=== PATIENT | female | born 1980 | race Caucasian/White ===

== ENCOUNTER → 2016-11-24 | Outpatient (CLI) | payer BC ==
[~2016-11-24] MED LIST: AMOX875T PO; HYDR-5688 PO; PRENTAB26 PO
== END | disposition home or self-care (01) ==
LOC: C.LABSPEC 14:41
PROVIDERS: ATTEND Obstetrics & Gynecology
DX: Z34.83 Encounter for supervision of other normal pregnancy, third trimester (principal)

== ENCOUNTER 2016-12-15 14:33 | Inpatient (IN) | payer BC ==
[~2016-12-15] VITALS: Ht 152.4 cm; Wt 79.4 kg
[~2016-12-15 14:33] MED LIST changes: -AMOX875T PO; -HYDR-5688 PO
[2016-12-15] MEDS ORDERED: AMOX875T PO (20:09)
[2016-12-15 20:11] VITALS: Ht 152.4 cm; Wt 79.4 kg
[2016-12-15] MEDS ORDERED: MISOPROSTOLTAB 50 MCG TAB PO STA (20:14)
[2016-12-15 20:25] LABS: HEMATOCRIT 35.2 % (37-47); MEAN CELL VOLUME 86.7 fL (80-100); MEAN CORPUSCULAR HEMOGLOBIN 29.6 pg (25-34); MEAN CORPUSCULAR HGB CONC 34.1 g/dl (32-36); MEAN PLATELET VOLUME 9.9 fL (7.4-10.4); PLATELET COUNT 289 K/uL (130-400); RED BLOOD COUNT 4.06 M/uL (4.2-5.4); WHITE BLOOD COUNT 10.44 K/uL (4.8-10.8)
[2016-12-16] MEDS ORDERED: DINOPROSTONE 10 MG INSERT PV STA (06:04)
[2016-12-16] MEDS: AMOXICILLIN/CLAVULANATE TAB 875 MG TAB PO SCH ×2 (08:01→17:42)
[2016-12-16] MEDS: LACTATED RINGER'S 1000ML 1,000 ML IV PRN ×2 (14:13→17:03)
[2016-12-16] MEDS ORDERED: OXYTOCIN 30 UNITS/500ML NSS IV PRN (16:00)
[2016-12-16] MEDS ORDERED: LACTATED RINGER'S 1000ML 500 ML IV PRN ×3 (16:00→23:52)
[2016-12-16] MEDS ORDERED: EpHEDrine SULFATE INJ 50 MG/ML AMP ONE (16:21)
[2016-12-16] MEDS ORDERED: FENTANYL 2MCG/ML ROPIV 1.25MG/ML 100ML BAG EPI ONE (16:21)
[2016-12-16] MEDS ORDERED: BUPIVACAINE 0.25% 30 ML VIAL ONE (16:21)
[2016-12-16] MEDS ORDERED: FENTANYL CITRATE INJ 50 MCG/1 ML 2 ML VIAL ONE ×2 (16:22→22:48)
[2016-12-16] MEDS ORDERED: NALOXONE HCL INJ 1 MG in SODIUM CHLORIDE 0.9% 1000ML 1,000 ML IV PRN ×2 (18:32→23:52)
[2016-12-16] MEDS ORDERED: NALOXONE HCL INJ 0.4 MG/1 ML VIAL/CARP IV PRN (18:45)
[2016-12-16] MEDS ORDERED: METOCLOPRAMIDE HCL INJ 20 MG in SODIUM CHLORIDE 0.9% 50ML 50 ML IV PRN (18:45)
[2016-12-16] MEDS ORDERED: PROMETHAZINE HCL INJ 25 MG in SODIUM CHLORIDE 0.9% 50ML 50 ML IV PRN (18:45)
[2016-12-16] MEDS ORDERED: EpHEDrine SULFATE INJ 50 MG/ML AMP IV PRN (18:45)
[2016-12-16] MEDS ORDERED: FENTANYL 2MCG/ML ROPIV 1.25MG/ML 100ML BAG EPI PRN (18:45)
[2016-12-16] MEDS ORDERED: ONDANSETRON INJ 2 MG/ML 2 ML VIAL IV PRN (18:45)
[2016-12-16] MEDS ORDERED: NALBUPHINE HCL INJ 10 MG/ML AMP IV PRN (18:45)
[2016-12-16] MEDS ORDERED: DiphenhydrAMINE HCL 50 MG/ML VIAL IV PRN (18:45)
[2016-12-16] MEDS ORDERED: CITRIC ACID/SODIUM CITRATE 15 ML UDC PO ONE (21:45)
[2016-12-16] MEDS ORDERED: CEFOXITIN IV 2,000 MG in DEXTROSE 5% 50ML 50 ML IV ONE (21:45)
[2016-12-16] MEDS ORDERED: OXYTOCIN INJ 10 UNITS/ML VIAL ONE ×3 (21:52→22:59)
[2016-12-16] MEDS ORDERED: MoRPHine SULFATE PF 1 MG/ML 10 ML AMP/VIAL ONE (21:53)
--- NOTE | 2016-12-16 22:05 | HISTORY & PHYSICAL EXAMINATION ---
DATE OF ADMISSION: 12/16/2016 CHIEF COMPLAINT: Nonreassuring heart rate tracing, suspected macrosomia and history of shoulder dystocia. HISTORY OF PRESENT ILLNESS: The patient is a 36-year-old, 4, para 3. On her last , she had delivered in 2005 a 9 pound boy with moderate shoulder dystocia. Her present has been uneventful. Her due date by first trimester ultrasound was 12/21/2016. She was ultrasounded at 36 weeks for size and this put her due at 12/17/2016. She is presently being admitted for induction of labor and suspected macrosomia at 39 weeks' 2 days. Once she was admitted she was given p.o. Cytotec. She contracted sporadically throughout the night and was given a Cervidil tape. Then, on the tape, she went into better labor. When I examined, her membranes ruptured surgically. Following this, she received epidural anesthesia for pain control and then went to IV Pitocin. Eventually she started to develop type 2 decelerations. We had to keep turning back to Pitocin. Eventually, we had to turn it off and she ended up with an arrest of labor at -2 station, 7 cm, 90-100% effaced and at that time even without the Pitocin she was getting recurrent, mild type 2 decelerations. She was diagnosed as having cephalopelvic disproportion secondary to suspected macrosomia and a nonreassuring heart rate tracing. PAST MEDICAL HISTORY: Three children, in good health. ALLERGIES: No known drug allergies. PAST SURGICAL HISTORY: Had her gallbladder removed. SOCIAL HISTORY: No smoking. No excessive alcohol intake. Works at home. FAMILY HISTORY: Mom is 65, has MS. Dad is 68, in good health. Two brothers and two sisters; in good health. REVIEW OF SYSTEMS: HEAD: No symptoms of frequent or severe headaches. EYES: No symptoms of blurred vision or double vision. EARS: No symptoms of frequent ear infection or difficulty hearing. NOSE: No symptoms of frequent nosebleeds or difficulty breathing through her nose. THROAT: No symptoms of frequent or severe sore throat, difficulty swallowing. RESPIRATORY: No history of asthma, chest pain or shortness of breath. PHYSICAL EXAMINATION: GENERAL: Well developed and well-nourished 36-year-old white female, alert, oriented x3, cooperative and in intermittent periods of distress due to contractions. HEART: Had regular rhythm. S1 and S2 were normal. BREASTS: Normal. ABDOMEN: Soft and nontender. Estimated weight was over 8 pounds. PELVIC: Large amount of molding -2 station, vertex cervix 100% effaced, 7 cm dilated. MUSCULOSKELETAL: Revealed no calf tenderness. IMPRESSION OF THIS CASE: Status post cholecystectomy, history of shoulder dystocia and nonreassuring heart rate tracing and suspected recurrent macrosomia. [facility]
[2016-12-16 22:20] LABS: HEMATOCRIT 36.4 % (37-47); MEAN CELL VOLUME 87.3 fL (80-100); MEAN CORPUSCULAR HEMOGLOBIN 29.7 pg (25-34); MEAN CORPUSCULAR HGB CONC 34.1 g/dl (32-36); MEAN PLATELET VOLUME 10.1 fL (7.4-10.4); PLATELET COUNT 281 K/uL (130-400); RED BLOOD COUNT 4.17 M/uL (4.2-5.4); WHITE BLOOD COUNT 15.74 K/uL (4.8-10.8)
[2016-12-16 22:45] LABS: BASO % 0.1 %; BASO ABS # 0.02 K/uL (0-0.2); COMPLETE YES; EOS % 0.1 %; IG% 0.3 %; LYMPH % 5.5 %; LYMPH ABS # 0.86 K/uL (1.2-3.4); MONO % 5.1 %; NEUT % 88.9 %
[2016-12-16] MEDS ORDERED: ONDANSETRON INJ 2 MG/ML 2 ML VIAL ONE (22:59)
[2016-12-16] MEDS ORDERED: MIDAZOLAM HCL 1 MG/ML 2ML VIAL ONE (23:08)
[2016-12-16] MEDS ORDERED: NALOXONE HCL INJ 0.08 MG in SYRINGE 1.8 ML IV PRN (23:52)
[2016-12-16] MEDS ORDERED: SODIUM CHLORIDE 0.9% 1000ML 1,000 ML IV PRN (23:52)
--- NOTE | 2016-12-16 23:54 | Anesthesia Procedure Note ---
Anesthesia Epidural Removal Nt Date & Time Dec 16, 2016 at 23:54 Vital Signs Pain Intensity: 0.0 Notes Mental Status: alert / awake / arousable, participated in evaluation Nausea / Vomiting: adequately controlled Pain: adequately controlled Airway Patency, RR, SpO2: stable & adequate BP & HR: stable & adequate Hydration State: stable & adequate Neuraxial Anesthesia: was administered Anesthetic Complications: no major complications apparent, pt satisfied with anesthetic care Epidural: removed without complications, with tip intact
[2016-12-17] VITALS (16 sets, daily range): BP systolic 99–110; BP diastolic 63–71; PULSE 83–97; TEMP 36.8; O2SAT 96–98
[2016-12-17] MEDS ORDERED: MAGNESIUM HYDROXIDE SUSP 30 ML UDC PO PRN
[2016-12-17] MEDS ORDERED: BENZOCAINE 20% AER SPR 82.5 GM CAN EXT PRN
[2016-12-17] MEDS ORDERED: SENNA 8.6 MG TAB PO PRN
[2016-12-17] MEDS ORDERED: NALOXONE HCL 0.4 MG/1 ML VIAL/CARP IV PRN
[2016-12-17] MEDS ORDERED: EpHEDrine SULFATE INJ 50 MG/ML AMP IV PRN
[2016-12-17] MEDS ORDERED: MoRPHine SULFATE PF 1 MG/ML 10 ML AMP/VIAL EPI PRN
[2016-12-17] MEDS ORDERED: LANOLIN OINT EXT PRN ×2
[2016-12-17] MEDS ORDERED: DIPHTHERIA/TETANUS/PERTUSSIS 0.5 ML SYR/VIAL IM. ONE
[2016-12-17] MEDS ORDERED: NO NARCOTICS OR SEDATIVES SCH
[2016-12-17] MEDS ORDERED: NALBUPHINE HCL INJ 10 MG/ML AMP IV PRN
[2016-12-17] MEDS ORDERED: MoRPHine SULFATE 2 MG/ML CARP IV PRN
[2016-12-17] MEDS ORDERED: KETOROLAC TROMETHAMINE 30 MG/ML VIAL IV. PRN
[2016-12-17] MEDS ORDERED: HYDROCORTISONE ACETATE 25 MG SUPP PR PRN
[2016-12-17] MEDS ORDERED: SUPERCREAM 0.870 % 15GM JAR EXT PRN
[2016-12-17] MEDS: OXYTOCIN INJ 20 UNITS in LACTATED RINGER'S 1000ML 1,000 ML IV SCH ×2 (00:17→08:56)
--- NOTE | 2016-12-17 00:38 | OPERATIVE REPORT ---
DATE OF OPERATION: 12/16/2016 PROCEDURE: Primary low segment section. INDICATIONS FOR SURGERY: Arrest of labor, nonreassuring heart rate pattern, history of shoulder dystocia. PREOPERATIVE DIAGNOSES: Nonreassuring heart rate pattern, history of shoulder dystocia, arrest of labor. POSTOPERATIVE DIAGNOSES: Same. Delivered live female infant. SURGEON: Dr. Chavarria. FAMILY PROGRAM SPECIALIST: Dr. Karl Card. ESTIMATED BLOOD LOSS: 800 mL ANESTHESIA: Epidural. OPERATIVE FINDINGS AND PROCEDURE: The patient was brought to the OR table, correctly identified by armband and conversation. Abreu catheter had been inserted into the bladder. Compression stockings applied. She was placed on the operating room table. Lower abdomen and upper thigh was painted with an alcohol-based sterilizing solution, draped in the usual sterile fashion. Pfannenstiel incision was made, carried down to the anterior fascia by sharp dissection. Hemostasis was secured by electrocauterization. Fascia was incised transversely, from underlying muscle by blunt and sharp dissection. Recti muscles were in the midline, exposing the peritoneum which was carefully raised and entered. Incision was made above the vesicouterine fold. The myometrium was entered partially with a knife and then bluntly with the scissors. Incision was extended laterally with 2 hands. I placed a hand into the uterine cavity. The infant was direct OP, rotated to OA, and then I delivered the head. After delivery of the head, there was a tight nuchal cord which was reduced and then the shoulders of the infant were delivered without difficulty. Cord was clamped and cut, and the infant was attended by the high speed operator, Dr. Kim who was present and scrubbed at the time of delivery. Following this, placenta was removed manually. Uterus was brought out through the incision. There was a tear/uterine defect on the patient's right side that went down into the upper cervix. We identified the extent of the tear and then repaired it with a continuous interlocking suture of chromic gut. Following this, I did a second layer of heavy duty Vicryl to approximate the fascial layer and then did several interrupted [id number] sutures on the patient's right side to complete the hemostatic process. I checked posteriorly to make sure none of the sutures came through the posterior broad ligament, and when I was satisfied that hemostasis was good, I used some Avitene on the edges, then I removed an abdominal pack which we had placed to retract the intestines and then I did a mattress suture of the peritoneum, interrupted [id number] suture of muscle, continuous interlocking suture of Vicryl on each side and tied in the midline. Subcu was approximated with a continuous plain. Skin edges were approximated with staple clips. I attest to the content of the Intraoperative Record and any orders documented therein. Any exceptio ns are noted below.
[2016-12-17] MEDS ORDERED: OXYTOCIN INJ 10 UNITS/ML VIAL ONE (01:12)
[2016-12-17 06:48] LABS: HEMATOCRIT 29.4 % (37-47); MEAN CELL VOLUME 88.8 fL (80-100); MEAN CORPUSCULAR HEMOGLOBIN 29.9 pg (25-34); MEAN CORPUSCULAR HGB CONC 33.7 g/dl (32-36); MEAN PLATELET VOLUME 10.1 fL (7.4-10.4); PLATELET COUNT 244 K/uL (130-400); RED BLOOD COUNT 3.31 M/uL (4.2-5.4); WHITE BLOOD COUNT 16.32 K/uL (4.8-10.8)
[2016-12-17 07:16] LABS: BASO % 0.1 %; BASO ABS # 0.01 K/uL (0-0.2); COMPLETE YES; EOS % 0.1 %; IG% 0.4 %; LYMPH % 7.6 %; LYMPH ABS # 1.24 K/uL (1.2-3.4); MONO % 6.3 %; NEUT % 85.5 %
[2016-12-17] MEDS: PRENATAL VITAMIN TAB PO SCH (07:57)
[2016-12-17] MEDS: SIMETHICONE 80 MG CHEW PO SCH ×4 (07:57→20:01)
[2016-12-17] MEDS: DOCUSATE SODIUM 100 MG CAP PO SCH ×2 (07:57→20:01)
[2016-12-17] MEDS: FERROUS SULFATE 325 MG TAB PO SCH (07:58)
--- NOTE | 2016-12-17 12:12 | Progress Note ---
Subjective Dec 17, 2016. Subjective conversation w/ patient Ambulation: limited ambulation Voiding: bartlett catheter in place Passing Gas: No Diet Tolerance: Clear Liquids Lochia: Small Feeding Type: Breast Feeding Review of Systems Constitutional: + fever Objective Vital Signs Date Time Temp Pulse Resp B/P Pulse Ox O2 Delivery O2 Flow Rate FiO2 12/17/16 11:30 36.8 83 16 99/64 96 Room Air 12/17/16 11:30 16 96 12/17/16 10:30 16 96 12/17/16 09:30 18 96 12/17/16 08:30 16 97 12/17/16 07:30 36.8 96 16 101/64 96 Room Air 12/17/16 07:30 96 Room Air 12/17/16 07:30 16 96 12/17/16 06:30 18 97 12/17/16 05:30 18 97 12/17/16 04:30 18 96 12/17/16 03:50 36.8 92 18 102/63 97 Room Air 12/17/16 03:30 20 96 12/17/16 02:50 36.8 92 20 101/63 96 Room Air 12/17/16 02:30 20 97 12/17/16 02:30 96 Room Air 12/17/16 02:30 96 Room Air Physical Exam General Appearance: WELL-APPEARING Respiratory/Chest: lungs clear Abdomen: non tender, + abnormal bowel sounds Fundus: Firm, Non-Tender Incision Description: Clean, Dry & Intact Extremities: no pedal edema, no calf tenderness Laboratory Results Last 24 Hours Test 12/16/16 22:02 12/17/16 06:11 White Blood Count 15.74 K/uL 16.32 K/uL Red Blood Count 4.17 M/uL 3.31 M/uL Hemoglobin 12.4 g/dL 9.9 g/dL Hematocrit 36.4 % 29.4 % Mean Corpuscular Volume 87.3 fL 88.8 fL Mean Corpuscular Hemoglobin 29.7 pg 29.9 pg Mean Corpuscular Hemoglobin Concent 34.1 g/dl 33.7 g/dl Platelet Count 281 K/uL 244 K/uL Mean Platelet Volume 10.1 fL 10.1 fL Neutrophils (%) (Auto) 88.9 % 85.5 % Lymphocytes (%) (Auto) 5.5 % 7.6 % Monocytes (%) (Auto) 5.1 % 6.3 % Eosinophils (%) (Auto) 0.1 % 0.1 % Basophils (%) (Auto) 0.1 % 0.1 % Neutrophils # (Auto) 14.01 K/uL 13.97 K/uL Lymphocytes # (Auto) 0.86 K/uL 1.24 K/uL Monocytes # (Auto) 0.80 K/uL 1.03 K/uL Eosinophils # (Auto) 0.01 K/uL 0.01 K/uL Basophils # (Auto) 0.02 K/uL 0.01 K/uL RDW Standard Deviation 45.3 fL 47.1 fL RDW Coefficient of Variation 14.3 % 14.4 % Immature Granulocyte % (Auto) 0.3 % 0.4 % Immature Granulocyte # (Auto) 0.04 K/uL 0.06 K/uL Red Blood Cell Morphology Unremarkable Assessment and Plan Post-Op Day#: 1
[2016-12-17] MEDS ORDERED: ZOLPIDEM TARTRATE 5 MG TAB PO PRN (14:00)
[2016-12-17] MEDS ORDERED: MEPERIDINE HCL 50 MG/ML CARP IV PRN (14:00)
[2016-12-17] MEDS ORDERED: MEPERIDINE HCL 75 MG/ML CARP IV PRN (14:00)
[2016-12-17] MEDS ORDERED: ONDANSETRON INJ 2 MG/ML 2 ML VIAL IV PRN ×2 (14:00)
[2016-12-17] MEDS ORDERED: DC INTRASPINAL MORPHINE SCH (14:00)
[2016-12-17] MEDS ORDERED: DiphenhydrAMINE HCL 50 MG/ML VIAL IV PRN ×2 (14:00)
[2016-12-17] MEDS ORDERED: OXYCODONE/ACETAMINOPHEN 5-325 TAB PO PRN (14:00)
[2016-12-17] MEDS: KETOROLAC TROMETHAMINE 30 MG/ML VIAL IV. PRN ×2 (14:20→20:40)
--- NOTE | 2016-12-17 14:49 | ORTHOPEDIC CONSULTATION REPORT ---
DATE OF CONSULTATION: 12/17/2016 CHIEF COMPLAINT: Right ring finger swelling. HISTORY OF PRESENT ILLNESS: Iris is a 36-year-old female patient who is currently admitted to 4th floor nursery unit. The patient underwent a on the evening of 12/16/2016. Our services were requested to evaluate patient for a swelling on the ulnar aspect of her right middle finger that has been present for 3 weeks. Iris denies prior 3 weeks ever having any issue with her right hand or fingers. She states that 3 weeks ago she noticed a small blood blister which she felt was a "blood blister" on the ulnar aspect of her right ring finger. Her used alcohol on the skin and a small needle to pop what was thought to be a blood blister and states that there was a significant amount of high pressured bleeding that was pulsating which they felt was odd for a small finding. did state that this area has engorged with blood rather notably and has not improved with conservative measures and observation. She denies of being painful. She was placed on Augmentin by Dr. Chavarria and they do report some improvement with the overall look of this finding, but nonetheless has not resolved. Denies any draining, any swelling or erythema. Again, no numbness or tingling. PAST MEDICAL HISTORY: Negative for notable pathology such as hypertension, hyperlipidemia, diabetes or thyroid issues. This is her 4th . PAST SURGICAL HISTORY: Cholecystectomy. FAMILY HISTORY: Noncontributory. SOCIAL HISTORY: The patient denies any alcohol, tobacco or illegal drug use. 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 HOME MEDICATIONS: Multivitamin. ALLERGIES: No known drug allergies. REVIEW OF SYSTEMS: The patient denies headache, chest pain, shortness of breath, fevers, chills or night sweats. PHYSICAL EXAMINATION: GENERAL: The patient is alert and oriented x3 female. She is resting comfortably in bed. She is accompanied by her and a fellow family member along with her daughter. SKIN: On exam of the patient's right ring finger, there is a .5 x .5 cm lesion on the ulnar aspect of the middle finger at the height of the DIP joint and it appears to be full of blood. It does not appear to be infectious in nature. There is no swelling, erythema or purulent. No current drainage. There is a Band-Aid and Coban placed over the lesion. No deformity. Otherwise, good alignment of the finger. NEUROVASCULAR: Capillary refill is under 2 seconds. On the right ring finger, distal pulses are +2. Has good sensation to light touch. She has active motor function. Direct pressure over the area of swelling does not cause the mass to carrie. It is nontender. MUSCULOSKELETAL: Exam of the right upper extremity, full range of motion of the fingers DIP, PIP and MCP joints of the right hand. Wrist has full range of motion. Again, no significant tenderness on palpating about the DIP joints or remaining aspect of the finger. It is not hard in nature when palpating the area of swelling. It is fluctuant and again appears to be full of blood. ASSESSMENT: Right ring finger swelling. PLAN: The patient educated regarding today's findings. Differential diagnosis was provided to Iris. I do not at this time see any type of urgent and/or emergent issue. I do not feel this is infectious in nature. I personally feel this appears to be related to a hemangioma. I would like to discuss the patient's findings further with Dr. Altmna. There may be a chance that obtaining a plain film radiograph of the patient's right ring finger would be beneficial to rule out any other type of pathology. At this point, we will continue to monitor Iris's status and make sure that her signs and symptoms do not worsen. Again, the patient does not complain of pain or any other acute or concerning issue other than the esthetic nature of this. The patient had no other questions or concerns. She is satisfied with today's care. Thank you for this consultation. Any other questions, please notify [facility] at [phone]. MTDD
--- NOTE | 2016-12-17 16:49 | DIAGNOSTIC IMAGING REPORT ---
RIGHT HAND MIN 3 VIEWS ROUTINE CLINICAL HISTORY: Fourth finger mass COMPARISON: None. DISCUSSION: No acute fractures are visualized. There are no dislocations. There are no erosive or destructive changes. There is a suspected soft tissue lesion with an overlying skin deformity involving the fourth finger at the ulna are aspect of the distal to phalangeal joint. IMPRESSION: Nonspecific soft tissue lesion involving the ulnar aspect of the fourth finger at the level of the distal interphalangeal joint. No underlying bony abnormalities Electronically signed by: Luis Lee M.D. 12/17/2016 4:48 PM Dictated Date/Time: 12/17/2016 4:46 PM
[2016-12-17] MEDS ORDERED: SILVER NITR/POTASSIUM NITRATE 10 APPLICATOR PACK ONE (19:28)
--- NOTE | 2016-12-17 20:40 | ORTHOPEDIC CONSULTATION ---
DATE OF CONSULTATION: 12/17/2016 The patient is from a , 36 years old. She is seen in conjunction with Renzo Sterling. For further details, refer to his dictation. He and I saw and evaluated together and agree with plan. She may have traumatized the finger, but it is not clear. Perhaps may be 3 weeks ago, spontaneous onset of what she describes as a blood blister, they attempted to pop it with a needle and it has subsequently gotten larger. It has been oozing and at times it has bled. She has no prior history of skin changes or ulceration to this area. PAST MEDICAL HISTORY: Gallbladder, . She is otherwise healthy, does not take any chronic medications and has no allergies. The right ring finger shows a raised 3-4 mm lesion about 4 mm in diameter, overlying the DIP joint, ulnar aspect. She has full movement. It is nontender. There is no swelling. Her neurovascular function is normal, flexor and extensor tendon function intact. The lesion is raised, not pedunculated. Hand radiograph obtained and reviewed, demonstrates soft tissue swelling in the ring finger ulnar aspect. There is no underlying bone change or damage. There is no evidence of arthritis or fracture. The report is noted. IMPRESSION: Right hand ring finger lesion. PLAN: The lesion is likely a pyogenic granuloma which is an exuberant healing response, usually to trauma. There is nothing that really needs to be done acutely. Keep it covered. I did apply some silver nitrate with her permission to initiate the cauterization process. We may attempt to do this repetitively or consider surgical excisional biopsy. She is to follow up with me once she is discharged as an outpatient, in my office number [phone], at her convenience within the next week or two. In the meantime, I would keep it covered with a Band-Aid or bandage and if there are any problems or questions, please let me know.
[2016-12-17] MEDS ORDERED: BISACODYL 5 MG TABEC PO ONE (22:00)
[2016-12-18 00:01] VITALS: BP 96/63; PULSE 89; TEMP 36.7; O2SAT 98
[2016-12-18] MEDS: KETOROLAC TROMETHAMINE 30 MG/ML VIAL IV. PRN (03:23)
[2016-12-18 07:35] VITALS: BP 101/67; PULSE 84; TEMP 36.9; O2SAT 97
[2016-12-18] MEDS: PRENATAL VITAMIN TAB PO SCH (08:11)
[2016-12-18] MEDS: SIMETHICONE 80 MG CHEW PO SCH ×4 (08:11→21:08)
[2016-12-18] MEDS: FERROUS SULFATE 325 MG TAB PO SCH (08:11)
[2016-12-18 08:15] VITALS: O2SAT 97
[2016-12-18] MEDS: DOCUSATE SODIUM 100 MG CAP PO SCH ×2 (09:17→21:08)
[2016-12-18] MEDS: OXYCODONE/ACETAMINOPHEN 5-325 TAB PO PRN ×3 (09:19→21:09)
--- NOTE | 2016-12-18 12:29 | Progress Note ---
Subjective Dec 18, 2016. Subjective conversation w/ patient Ambulation: ambulating normally Voiding: no voiding problems, bartlett catheter in place Passing Gas: Yes Diet Tolerance: Regular Diet Lochia: Small Feeding Type: Breast Feeding Review of Systems Constitutional: + fever Objective Vital Signs Date Time Temp Pulse Resp B/P Pulse Ox O2 Delivery O2 Flow Rate FiO2 12/18/16 08:15 97 Room Air 12/18/16 07:35 36.9 84 18 101/67 97 Room Air 12/18/16 00:01 36.7 89 20 96/63 98 Room Air 12/18/16 00:01 98 Room Air 12/18/16 00:01 20 98 12/17/16 20:00 36.8 85 20 110/71 97 Room Air 12/17/16 15:00 36.8 97 16 103/64 98 Room Air 12/17/16 15:00 98 Room Air 12/17/16 13:30 18 97 12/17/16 12:30 18 96 Physical Exam General Appearance: WELL-APPEARING Abdomen: normal bowel sounds, non tender Fundus: Firm, Non-Tender Incision Description: Clean, Dry & Intact Extremities: no pedal edema, no calf tenderness Assessment and Plan Post-Op Day#: 2 Continue Routine Care: bandage removed
[2016-12-18] MEDS: IBUPROFEN 600 MG TAB PO PRN ×2 (13:37→21:08)
[2016-12-18 16:19] VITALS: BP 94/63; PULSE 94; TEMP 36.6
[2016-12-18 23:35] VITALS: BP 99/65; PULSE 96; TEMP 36.6
[2016-12-19] MEDS ORDERED: BISACODYL 10 MG SUPP PR PRN
[2016-12-19] MEDS: IBUPROFEN 600 MG TAB PO PRN ×2 (06:18→12:02)
[2016-12-19] MEDS: OXYCODONE/ACETAMINOPHEN 5-325 TAB PO PRN ×2 (06:18→12:03)
[2016-12-19 07:56] VITALS: BP 112/75; PULSE 98; TEMP 36.8
[2016-12-19] MEDS: DOCUSATE SODIUM 100 MG CAP PO SCH (08:34)
[2016-12-19] MEDS: SIMETHICONE 80 MG CHEW PO SCH ×2 (08:34→12:04)
--- NOTE | 2016-12-19 10:13 | Progress Note ---
Subjective Dec 19, 2016. Subjective conversation w/ patient Ambulation: ambulating normally Voiding: no voiding problems, bartlett catheter in place Passing Gas: Yes Diet Tolerance: Regular Diet Lochia: Small Feeding Type: Breast Feeding Review of Systems Constitutional: + fever Objective Vital Signs Date Time Temp Pulse Resp B/P Pulse Ox O2 Delivery O2 Flow Rate FiO2 12/19/16 07:56 36.8 98 20 112/75 Room Air 12/19/16 07:30 Room Air 12/18/16 23:35 36.6 96 18 99/65 Room Air 12/18/16 23:35 Room Air 12/18/16 16:30 Room Air 12/18/16 16:19 36.6 94 18 94/63 Room Air Physical Exam General Appearance: WELL-APPEARING Respiratory/Chest: lungs clear Abdomen: normal bowel sounds, non tender Fundus: Firm, Non-Tender Incision Description: Clean, Dry & Intact Extremities: no pedal edema, no calf tenderness Assessment and Plan Post-Op Day#: 3
--- NOTE | 2016-12-19 10:16 | Discharge Instructions ---
Discharge Instructions Date of Service Dec 19, 2016. Admission Reason for Admission: IUP Discharge Discharge Diagnosis / Problem: tight nuchal cord distress Discharge Goals Goal(s): Routine recovery after Activity Recommendations Activity Limitations: as noted below ACTIVITY RECOMMENDATIONS: * Gradual return to full activity over the next 2-3 weeks. * No lifting - nothing heavier than baby over the next 2-3 weeks. * Do not engage in vigorous exercise, sexual activity or sports for 6 weeks. * Do not drive or operate any motorized equipment for 14 days. * You may shower/bathe daily. DIET: Resume Previous Diet If Breast-feeding: * Increase caloric intake by 500 calories, eat 3 well balanced meals, 2 high protein snacks a day and drink 6-8 8oz. glasses of fluid per day. BREAST CARE: If you are not breast feeding: * Wear a supportive bra 24 hours a day for one to two weeks. * Avoid stimulating your breasts and nipples as much as possible during the first few weeks after delivery. * When taking a shower, have the warm water hit your back, not breasts. * When your breasts feel full, apply ice packs. Usually three to four times a day helps ease the discomfort. * Take a mild pain medication (Tylenol / Motrin) when you are uncomfortable. If breast feeding: * Use breast milk to lubricate nipples. Lansinoh cream may be used for sore nipples. You do not need to remove cream prior to breast feeding. If using a different brand of cream, check the label for directions regarding removal of cream prior to nursing. * Wear a supportive bra. * If having problems with breasts or breast feeding, call a event management consultant or your health care provider. VITAMINS: * One tablet daily. Continue taking while or until you have your check up in 6 weeks. SPECIAL CARE INSTRUCTIONS: * Vaginal rest (no tampons, douching, intercourse) until after doctor's visit. * control as discussed with doctor. * Verbalizes understanding of car seat law as reviewed with patient by nursing. * Car Seat hand-out given and reviewed with patient by nursing. * Shaken baby information reviewed with patient by nursing. Call you doctor if: * Heavy bleeding (saturating a pad an hour) or passing clots the size of your fist. Bleeding has a foul smelling odor. * A fever greater than 100.4 degrees F (38 degrees C) on two occasions four hours apart and/or chills. * Unusual pain in the pelvic or vaginal areas. Pain should improve each day . * Call the doctor for any increased redness, drainage or swelling around the incision and any pain unrelieved by prescribed pain medication. * Signs and symptoms of phlebitis(possible blood clots forming in the veins): leg pain, warm, red or swollen area on leg. * "Baby Blues" lasting longer than two weeks. If you have any questions or concerns, call your health care practitioner at [phone]. FOLLOW-UP VISIT: Follow-up visit for examination in 6 weeks. Incision check (staple removal) in 1 week. Please call office at [phone] if not already scheduled. . Current Hospital Diet Patient's current hospital diet: Regular OB Diet Discharge Diet Recommended Diet: Regular Diet Procedures Procedures Performed: Primary caesarean section Live female child at 2245 Pending Studies Studies pending at discharge: no Medical Emergencies . Who to Call and When: Medical Emergencies: If at any time you feel your situation is an emergency, please call 911 immediately. . Non-Emergent Contact Non-Emergency issues call your: Supervisor Telephone Clerks Call Non-Emergent contact if: temperature is above 100.5 . . "Provider Documentation" section prepared by Froylan Chavarria. VTE Core Measure Inpt VTE Proph given/why not?: Treatment not indicated
--- NOTE | 2016-12-19 10:32 | DISCHARGE SUMMARY ---
DATE OF DISCHARGE: 12/19/2016. Mrs. Tabares was brought in for induction of labor at 39+ weeks gestation. She had a history of having a prior 9 pound infant which resulted in shoulder dystocia. Estimated weight on admission was 8 pounds. She underwent a long attempted induction which included p.o. Cytotec, Cervidil tape and then IV Pitocin. Eventually she got to around 6-7 cm and we had an arrest of dilatation, arrest of descent and we had to turn off the labor stimulation because she was getting a nonreassuring pattern type 2 decelerations with the augmentation and she underwent a primary low segment section at which time the infant was found to be a direct OP with a tight nuchal cord. Blood loss at surgery was more than average due to tear in the uterine incision on the patient's right side. We had to do some extra stitching. Her preoperative hemoglobin was 12.0, hematocrit 35.2. Postoperatively hemoglobin was 9.9, hematocrit 29.4. Postoperatively, she did well. She remained afebrile. Bowel sounds returned promptly. We did have a consult with orthopedics, specifically Dr. Altman who looked at her finger on her right hand. It had a hemangioma on it. He cauterized it with silver nitrate and that gave her an appointment to return in the office. At the time of discharge, she was ambulating well, eating well. Pain was well controlled with a combination of Percocet and Motrin. She was told to call the office for removal of juan.
[2016-12-19 11:06] VITALS: BP_DIAS 75; PULSE 98; TEMP 36.8
[2016-12-19] MEDS: FERROUS SULFATE 325 MG TAB PO SCH (12:01)
[2016-12-19] MEDS: PRENATAL VITAMIN TAB PO SCH (12:01)
[2017-01-21] MEDS ORDERED: HYDR-5688 PO (07:55)
== END 2016-12-19 13:00 | disposition home or self-care (01) | DRG 766 ==
LOC: C.LD 18:58 → C.OBG 12-17 02:32
PROVIDERS: ADMIT Obstetrics & Gynecology; ATTEND Obstetrics & Gynecology
PROC: 0UQ90ZZ Repair Uterus, Open Approach (ICD-10-PCS; principal; 2016-12-16 22:01)
PROC: 10D00Z1 Extraction of Products of Conception, Low, Open Approach (ICD-10-PCS; principal; 2016-12-16 22:01)
PROC: 3E0P7GC Introduction of Other Therapeutic Substance into Female Reproductive, Via Natural or Artificial Opening (ICD-10-PCS; principal; 2016-12-16 22:01)
PROC: 0H5FXZZ Destruction of Right Hand Skin, External Approach (ICD-10-PCS; 2016-12-17)
DX: O62.1 Secondary uterine inertia (principal); O36.63X0 Maternal care for excessive fetal growth, third trimester, not applicable or unspecified; O76 Abnormality in fetal heart rate and rhythm complicating labor and delivery; O67.8 Other intrapartum hemorrhage; O32.4XX0 Maternal care for high head at term, not applicable or unspecified; O33.9 Maternal care for disproportion, unspecified; O75.4 Other complications of obstetric surgery and procedures; O71.81 Laceration of uterus, not elsewhere classified; O69.1XX0 Labor and delivery complicated by cord around neck, with compression, not applicable or unspecified; O61.0 Failed medical induction of labor; O99.73 Diseases of the skin and subcutaneous tissue complicating the puerperium; L98.0 Pyogenic granuloma; D18.01 Hemangioma of skin and subcutaneous tissue; Z37.0 Single live birth; Z3A.39 39 weeks gestation of pregnancy; Z23 Encounter for immunization

== ENCOUNTER → 2017-01-21 | Day surgery (SDC) | payer BC ==
[2017-01-15 09:16] VITALS: Ht 152.4 cm; Wt 76.8 kg
[~2017-01-21] VITALS: Ht 152.4 cm; Wt 76.8 kg
[~2017-01-21] MED LIST changes: +ATROPINE SULFATE 0.1 MG/ML 5ML SYR IV PRN; +BUPIVACAINE/EPINEPHRINE 0.5% MPF 1:200,000 30 ML VIAL ONE; +CEFAZOLIN 2000 MG/60 ML D5W IV SCH; +DEXAMETHASONE SOD INJ 4 MG/ML VIAL ONE; +EpHEDrine SULFATE INJ 50 MG/ML AMP IV PRN; +FENTANYL CITRATE INJ 50 MCG/1 ML 2 ML VIAL ONE; +HYDR-5688 PO; +LACTATED RINGER'S 1000ML 1,000 ML IV SCH; +LIDOCAINE HCL 2% 2 ML VIAL (20MG/ML) ONE; +LIDOCAINE/EPINEPHRINE 1% INJ 50 ML VIAL ONE; +MIDAZOLAM HCL 1 MG/ML 2ML VIAL ONE; +ONDANSETRON INJ 2 MG/ML 2 ML VIAL IV PRN; +ONDANSETRON INJ 2 MG/ML 2 ML VIAL ONE; +OXYCODONE/ACETAMINOPHEN 5-325 TAB PO PRN; +PROPOFOL IV EMULSION 10 MG/ML 20 ML VIAL IV ONE; +SODIUM CHLORIDE 0.9% 1000ML 1,000 ML IV SCH
--- NOTE | 2017-01-21 06:39 | History & Physical Bridge Note ---
H&P Re-Evaluation Bridge Note: I have examined the patient, reviewed the History & Physical and in the interval since the performance of the History & Physical I have noted the following changes of clinical significance: No changes noted
--- NOTE | 2017-01-21 07:57 | [facility] Post Operative Brief Note ---
Immediate Operative Summary Operative Date Jan 21, 2017. Pre-Operative Diagnosis Right Ring Finger Mass Post-Operative Diagnosis same Procedure(s) Performed Right Ring Finger Excisional Biopsy Surgeon Dr Altman Script Supervisor Surgeon(s) Laina Murray PA-C Estimated Blood Loss 5ML Findings probable pyogenic granuloma Specimens A) Pyogenic Granuloma Right Ring Finger Drains 0 Anesthesia local with IV sedation Complication(s) None Disposition Recovery Room / PACU
--- NOTE | 2017-01-21 08:00 | Discharge Instructions-[facility] ---
Discharge Instructions Date of Service Jan 21, 2017. Visit Reason for Visit: Right Ring Finger Mass Discharge Discharge Diagnosis / Problem: right ring finger mass Discharge Goals Goal(s): Decrease discomfort, Improve function, Increase independence Activity Recommendations Activity Limitations: per Instructions/Follow-up section Anesthesia . Post Anesthesia Instructions: If you have had General Anesthesia or IV Sedation: * Do not drive today. * Resume driving when surgeon permits. * Do not make important decisions or sign legal documents today. * Call surgeon for: 1. Temperature elevations greater than 101 degrees F. 2. Uncontrollable pain. 3. Excessive bleeding. 4. Persistent nausea and vomiting. 5. Medication intolerance (nausea, vomiting or rash). * For nausea and vomiting use only clear liquids such as: tea, soda, bouillon until nausea subsides, then gradually increase diet as tolerated. * If you have any concerns or questions, call your surgeon's office. If physician is unavailable and it is an emergency, call 911 or go to the nearest emergency room. . Instructions / Follow-Up Instructions / Follow-Up DIET: * Resume previous diet. MEDICATIONS: * Please take your prescriptions as instructed at your pre-op appointment and/ or see medication discharge instructions listed above. * If concerns develop, call your physician's office at . SPECIAL CARE INSTRUCTIONS: * Ice to right hand as needed for pain/swelling * elevate right hand above your heart to relieve pain/swelling. * Okay to do gentle range of motion of ring finger as tolerated. * Keep dressing clean, dry, intact until your follow up appointment. * Your surgical extremity may be discolored due to prepping agents used on the skin. A bluish-green tint is a normal variant and should not cause alarm. Call your doctor at [phone] if: * Temperature above 101 degrees * Pain not relieved by pain medicine ordered * There is increased drainage or redness from any incision * You have any unanswered questions, problems or concerns. FOLLOW UP VISIT: * If not already scheduled, please call the office at to schedule a follow-up appointment. You have a follow up/wound check appointment on 01/25/17 at 1:00 p.m. You have a follow up appointment with Dr. Altman on 02/02/17 at 3:15 p.m. Diet Recommendations Home Diet: no limitations, resume previous diet Procedures Procedures Performed: Right Ring Finger Excisional Biopsy Pending Studies Studies pending at discharge: no Medical Emergencies . Who to Call and When: Medical Emergencies: If at any time you feel your situation is an emergency, please call 911 immediately. . Non-Emergent Contact Non-Emergency issues call your: Surgeon Call Non-Emergent contact if: temperature is above 101.5, your pain is not controlled, your pain is concerning you, wound has increased drainage, wound has increased pain, you have any medication questions . . "Provider Documentation" section prepared by Lizet Murray.
--- NOTE | 2017-01-21 08:04 | [facility] Operative Report ---
Operative Report Operative Date Jan 21, 2017. Pre-Operative Diagnosis Right Ring Finger Mass Post-Operative Diagnosis Right ring finger mass Procedure(s) Performed Excisional biopsy right ring finger Surgeon Dr Altman Miller [employer] Dried Salt Surgeon(s) Laina Murray PA-C Estimated Blood Loss 5ML Findings pyogenic granuloma Specimens A) Pyogenic Granuloma Right Ring Finger Drains 0 Anesthesia local with IV sedation Complication(s) None Disposition Recovery Room / PACU (stable) Indications Patient is a 37 year old female who developed a "blood blister" on her right ring finger a few months ago during . She delivered her baby approximately 6 weeks ago and was referred to Dr. Altman for treatment. Surgical excision discussed, she agreed to proceed. Risks/complications discussed, informed consent obtained. Description of Procedure Patient was taken to the recovery room, given IV Ancef for surgical prophylaxis. She was given local anesthesia with IV sedation. Time out performed, prepped and draped in routine sterile fashion. I was present the entire case, please see Dr. Altman's operative report for further detail. Patient was awakened and taken to the recovery room in stable condition. I attest to the content of the Intraoperative Record and any orders documented therein. Any exceptions are noted below.
--- NOTE | 2017-01-21 08:08 | Anesthesia Progress Nt - [facility] ---
Anesthesia Post Op Note Date & Time Jan 21, 2017 at 08:08 Vital Signs Pain Intensity: 0 Vital Signs Past 12 Hours Date Time Temp Pulse Resp B/P Pulse Ox O2 Delivery O2 Flow Rate FiO2 01/21/17 07:56 36.5 64 16 90/54 95 Room Air 01/21/17 06:31 36.4 75 16 109/65 98 Room Air Notes Mental Status: alert / awake / arousable, participated in evaluation Pt Amnestic to Procedure: Yes Nausea / Vomiting: adequately controlled Pain: adequately controlled Airway Patency, RR, SpO2: stable & adequate BP & HR: stable & adequate Hydration State: stable & adequate Anesthetic Complications: no major complications apparent
[2017-01-21 08:24] VITALS: BP 101/63; PULSE 44; O2SAT 100
--- NOTE | 2017-01-21 08:37 | OPERATIVE REPORT ---
DATE OF OPERATION: 01/21/2017 PREOPERATIVE DIAGNOSIS: Right hand ring finger mass, probable pyogenic granuloma. POSTOPERATIVE DIAGNOSIS: Same. PROCEDURE PERFORMED: Excisional biopsy. SURGEON: Dr. Sanket Altman. SUPPORT TEAM MEMBER: Lizet Murray. No resident or fellow available. ANESTHESIA: Local with IV sedation. INDICATIONS OF PROCEDURE: The patient is a 37-year-old female who is recently . During the later stages of her , she developed a lesion on the ulnar aspect of her ring finger in the mid axial line overlying the DIP joint. This lesion was friable and bled often. Radiographs were negative. The lesion clinically was consistent with pyogenic granuloma, which was noted to occur with increasing frequency on the fingers of woman. Treatment with silver nitrate was attempted with some improvement, but not complete resolution of the lesion. She elected to proceed with surgical excision. We discussed a small risk of recurrence. PROCEDURE IN DETAIL: Informed consent was obtained. The patient was identified as Iris Tabares. She identified the operative site as the right hand ring finger. I marked it with my initials. A preop surgical timeout was performed. A preop dose of IV antibiotics was given. She was taken to the operating room, positioned supine on the operating room table and an IV sedation was administered along with a digital block using 1% lidocaine with epinephrine and 0.5% Marcaine with epinephrine. The volar and dorsal aspects of the finger were injected at the level of the metatarsophalangeal joint and several mL were placed in the volar skin on the distal forearm for possible full thickness skin graft. DVT prophylaxis was not indicated. She was positioned supine on the OR table with the right arm on a hand table. DVT prophylaxis was not indicated. The lesion was about 5-6 mm in length and about 4-5 mm in width. It was sessile onto the skin. The limb was exsanguinated with the Esmarch and tourniquet inflated to 225 mmHg. I used a [place] elevator, bluntly dissected from the surrounding tissue and it easily peeled off of the underlying dermis. The margins of the epidermis were trimmed. The dermal layer was thoroughly curettaged. I did not see any specific pedunculated area. The lesion was sent for specimen. No cultures were necessary. The lesion did not appear to go down into the subcutaneous fat. The options were to do a skin graft, which I felt was excessive. To close primarily, we have required more surgical intervention, further debridement, undermining, converting the lesion into an ellipse rather than the cervical. Primary closure would not be possible due to the width of the lesion being about 5-6 mm in diameter. The tourniquet was let down after 12 minutes of inflation. Meticulous hemostasis was performed. I did use electrocautery around the margins and some on the central portion. At this point, I elected to do nothing further and it will obviously heal by secondary intention with reepithelialization. There was perhaps a small risk of recurrence and this likely could be treated with silver nitrate, which is a well recognized adjunctive treatment for this pathology. The wound was irrigated and then, a nonadherent Xeroform dressing, 2 x 2's and gauze wrap was applied to the finger. The patient was then awakened from anesthesia without difficulty and taken to recovery in stable condition. The resected lesion was sent for specimen. There were no complications. Counts were correct at the end of the case. Blood loss was 5 mL. At the conclusion of the operation, I spoke to the patient's and informed him of my findings and discussed with him the plan. I attest to the content of the Intraoperative Record and any orders documented therein. Any exceptio ns are noted below.
== END | disposition home or self-care (01) ==
LOC: X.SURG 06:15
PROVIDERS: ATTEND Physical Medicine & Rehabilitation Sports Medicine
DX: L98.0 Pyogenic granuloma (principal); Z98.890 Other specified postprocedural states

== ENCOUNTER → 2017-01-28 | Outpatient (CLI) | payer BC ==
[~2017-01-28] MED LIST changes: -ATROPINE SULFATE 0.1 MG/ML 5ML SYR IV PRN; -BUPIVACAINE/EPINEPHRINE 0.5% MPF 1:200,000 30 ML VIAL ONE; -CEFAZOLIN 2000 MG/60 ML D5W IV SCH; -DEXAMETHASONE SOD INJ 4 MG/ML VIAL ONE; -EpHEDrine SULFATE INJ 50 MG/ML AMP IV PRN; -FENTANYL CITRATE INJ 50 MCG/1 ML 2 ML VIAL ONE; -LACTATED RINGER'S 1000ML 1,000 ML IV SCH; -LIDOCAINE HCL 2% 2 ML VIAL (20MG/ML) ONE; -LIDOCAINE/EPINEPHRINE 1% INJ 50 ML VIAL ONE; -MIDAZOLAM HCL 1 MG/ML 2ML VIAL ONE; -ONDANSETRON INJ 2 MG/ML 2 ML VIAL IV PRN; -ONDANSETRON INJ 2 MG/ML 2 ML VIAL ONE; -OXYCODONE/ACETAMINOPHEN 5-325 TAB PO PRN; -PROPOFOL IV EMULSION 10 MG/ML 20 ML VIAL IV ONE; -SODIUM CHLORIDE 0.9% 1000ML 1,000 ML IV SCH
== END | disposition home or self-care (01) ==
LOC: C.PAPS 15:28
PROVIDERS: ATTEND Obstetrics & Gynecology
DX: Z39.2 Encounter for routine postpartum follow-up (principal)